=== PATIENT | female | born 1950 | race Caucasian/White ===

== ENCOUNTER → 2017-12-25 | Outpatient (CLI) | payer MEDICARE ==
--- NOTE | 2017-12-25 10:14 | BD ---
EXAMINATION TYPE: MG DEXA axial skeleton. DATE OF EXAM: 12/25/2017 CLINICAL HISTORY: Height: 62.5 inches Weight: 138 FRAX RISK QUESTIONS: Alcohol (3 or more units per day): no Family History (Parent hip fracture): no Glucocorticoids (More than 3mos): no (Ex: prednisone, prednisolone, methylprednisolone, dexamethasone, and hydrocortisone). History of Fracture in Adulthood: no Secondary Osteoporosis: 1. Type 1 Diabetes: no 2. Hyperthyroidism: no 3. Menopause before 45: no 4. Malnutrition: no 5. Chronic liver disease: no Rheumatoid Arthritis: yes Current Tobacco Use: no RISK FACTORS HISTORY OF: Family History of Osteoporosis: yes Active: yes Diet low in dairy products/other sources of calcium: no Postmenopausal woman: yes Take estrogen and/or progesterone medications: no Lost more than 2 inches in height since high school: no Frequent falls: no Poor Health: no Hyperparathyroidism: no Adrenal Insufficiency: no MEDICATIONS: Prednisone or other steroids: no Thyroid Medications: no Osteoporosis Medications: no EXAM MEASUREMENTS: Bone mineral densitometry was performed using the [employer] System. Bone mineral density as measured about the Lumbar spine is: ----- L1-L4(G/cm2): 1.463 T Score Values are as follows: ----- L2: 3.2 ----- L3: 3.0 ----- L4: 0.8 ----- L1-L4: 2.4 Bone mineral density has: Increased 7.2% since study of: 09/29/2009 Bone mineral density about the R hip (g/cm2): 0.972 Bone mineral density about the L hip (g/cm2): 1.012 T Score values are as follows: -----R Neck: -0.5 -----L Neck: -0.2 -----R Total: 0.2 -----L Total: 0.6 Bone mineral density has: Increased 0.9% since study of: 09/29/2009 IMPRESSION: Normal (Values between +1 and -1 indicate normal bone mass). Consider repeating this study in 5 year s or sooner if there is some new clinical indication. NOTE: T-SCORE=SD OF THE YOUNG ADULT MEAN.
--- NOTE | 2017-12-26 11:34 | MM ---
Reason for exam: screening (asymptomatic). Last mammogram was performed 4 years and 4 months ago. History: Patient is postmenopausal. Family history of breast cancer in aunt. Reductions of both breasts, 1990. Physical Findings: A clinical breast exam by your physician is recommended on an annual basis and results should be correlated with mammographic findings. MG 3D Screening Mammo W/Cad Bilateral CC and MLO view(s) were taken. Prior study comparison: August 22, 2013, [facility] DIGITAL RIGHT MAMMOGRAM w/CAD. August 20, 2013, bilateral digital screening mammo w/CAD. No significant changes when compared with prior studies. ASSESSMENT: Negative, BI-RAD 1 RECOMMENDATION: Routine screening mammogram of both breasts in 1 year.
== END | disposition home or self-care (01) ==
LOC: RADMAMWWP 08:43
PROVIDERS: ATTEND Internal Medicine
DX: Z12.31 Encounter for screening mammogram for malignant neoplasm of breast (principal); M85.80 Other specified disorders of bone density and structure, unspecified site
CPT/HCPCS: 77063; 77067; 77080

== ENCOUNTER → 2019-11-18 | Outpatient (CLI) | payer MEDICARE ==
[2019-11-18 11:10] LABS: Basophils # (A) 0.1 k/uL (0-0.2); Basophils % (A) 1 %; Eosinophils # (A) 0.2 k/uL (0-0.7); Eosinophils % (A) 3 %; HCT 45.9 % (34.0-46.0); Lymphocytes % (A) 18 %; MCH 26.9 pg (25.0-35.0); MCHC 30.6 g/dL (31.0-37.0); MCV 87.9 fL (80.0-100.0); Mean Platelet Volume 8.5; Monocytes # (A) 0.3 k/uL (0-1.0); Monocytes % (A) 5 %; Neutrophils # (A) 4.2 k/uL (1.3-7.7); Neutrophils % (A) 72 %; Platelet Count 183 k/uL (150-450); RBC 5.22 m/uL (3.80-5.40); RDW 12.7 % (11.5-15.5); WBC 5.8 k/uL (3.8-10.6)
[2019-11-18 13:09] LABS: Erythrocyte Sedimentation Rate 2 mm/hr (0-20)
[2019-11-18 16:30] LABS: C Reactive Protein <0.4 mg/dL (0.0-0.8); Rheumatoid Factor, Qnt 6 IU/mL (0-15); Uric Acid 3.5 mg/dL (2.9-7.7)
[2019-11-19 14:45] LABS: ANA Pattern See Footnote
== END | disposition home or self-care (01) ==
LOC: LABWHC1 10:06
PROVIDERS: ATTEND Orthopaedic Surgery
DX: M25.50 Pain in unspecified joint (principal)
CPT/HCPCS: 36415; 84550; 85025; 85652; 86038; 86039; 86140; 86431

== ENCOUNTER → 2021-07-20 | Outpatient (CLI) | payer MEDICARE ==
--- NOTE | 2021-07-20 10:52 | BD ---
EXAMINATION TYPE: Axial Bone Density DATE OF EXAM: 07/20/2021 COMPARISON: 12/25/2017 CLINICAL HISTORY: Postmenopausal screening Height: 61.5 IN Weight: 131 LBS RISK FACTORS HISTORY OF: Active: YES Postmenopausal woman: AGE 47 Lost more than 2 inches in height since high school: YES 2 10/24" MEDICATIONS: Thyroid Medications: YES Which medication: Levothyroxine How Lon MONTH Additional Medications: CALCIUM, VIT D, LEVOTHYROXINE, CHOLESTEROL MEDS, KLONOPIN, EXAM MEASUREMENTS: Bone mineral densitometry was performed using the [employer] System. Bone mineral density as measured about the Lumbar spine is: ----- L1-L4(G/cm2): 1.455 T Score Values are as follows: ----- L2: 3.4 ----- L3: 3.3 ----- L4: 0.7 ----- L1-L4: 2.3 Bone mineral density has: Decreased -0.3% since study of: 12/25/2017 Bone mineral density about the R hip (g/cm2): 0.974 Bone mineral density about the L hip (g/cm2): 1.033 T Score values are as follows: -----R Neck: -0.5 -----L Neck: 0.0 -----R Total: 0.0 -----L Total: 0.4 Bone mineral density has: Decreased -2.0% since study of: 12/25/2017 IMPRESSION: Normal (Values between +1 and -1 indicate normal bone mass). Consider repeating this study in 5 year s or sooner if there is some new clinical indication. NOTE: T-SCORE=SD OF THE YOUNG ADULT MEAN.
--- NOTE | 2021-07-21 09:44 | MM ---
Reason for exam: screening (asymptomatic). Last mammogram was performed 3 years and 7 months ago. History: Patient is postmenopausal. Family history of breast cancer in aunt. Reductions of both breasts, 1990. Physical Findings: A clinical breast exam by your physician is recommended on an annual basis and results should be correlated with mammographic findings. MG 3D Screening Mammo W/Cad Bilateral CC and MLO view(s) were taken. Prior study comparison: December 25, 2017, bilateral MG 3d screening mammo w/cad. August 22, 2013, [facility] DIGITAL RIGHT MAMMOGRAM w/CAD. There are scattered fibroglandular densities. There is no discrete abnormality. No significant changes when compared with prior studies. ASSESSMENT: Negative, BI-RAD 1 RECOMMENDATION: Routine screening mammogram of both breasts in 1 year.
== END | disposition home or self-care (01) ==
LOC: RADMAMWWP 09:26
PROVIDERS: ATTEND Internal Medicine
DX: Z12.31 Encounter for screening mammogram for malignant neoplasm of breast (principal); Z13.820 Encounter for screening for osteoporosis; Z78.0 Asymptomatic menopausal state; Z80.3 Family history of malignant neoplasm of breast
CPT/HCPCS: 77063; 77067; 77080

== ENCOUNTER → 2022-07-15 | Outpatient (CLI) | payer MEDICARE ==
[2022-07-15 16:59] LABS: African American GFR (CKD) >90 (>60 ml/min/1.73 sqM); Amylase 82 U/L (30-110); Blood Urea Nitrogen 16 mg/dL (7-17); Lipase 86 U/L (23-300); Non-African American GFR(CKD) 87 (>60 ml/min/1.73 sqM)
--- NOTE | 2022-07-15 18:37 | CT ---
EXAMINATION TYPE: CT abdomen pelvis wo/w con DATE OF EXAM: 07/15/2022 COMPARISON: Ultrasound of 03/15/2022 HISTORY: per patient no symptoms, abnormal blood work, poss issue with pancreas CT DLP: 661.70 mGycm CONTRAST: CT scan of the abdomen and pelvis is performed with Oral Contrast and without and with IV Contrast, p atient injected with 70 mL of Isovue 300. FINDINGS: LUNG BASES-: No visible nodule. No infiltrate. LIVER/GB: No calcified gallstones. Small hypoattenuating hepatic lesions could reflect cysts. Mild intrahepatic biliary ductal prominence noted. There is mild prominence of the common bile duct at the level of the pancreatic head measuring 8.2 mm. PANCREAS: There is fullness of the pancreatic head without distinct mass. As noted there is mild prom inence of the common bile duct and intrahepatic biliary tree as well as the pancreatic duct measuring up to 3.7 mm. No pancreatic inflammatory change. Pancreatic body and tail appear within normal limit s. SPLEEN: No splenic enlargement. No lesion seen. ADRENALS: No nodule. No thickening. KIDNEYS/BLADDER: No hydronephrosis. No nephrolithiasis. No distinct renal mass. Urinary bladder g rossly unremarkable. BOWEL: Normal appendix. Normal bowel caliber. No inflammation. GENITAL ORGANS: No gross abnormality. LYMPH NODES: No greater than 1cm abdominal or pelvic lymph nodes are appreciated. AORTA: No significant abnormality. OSSEOUS STRUCTURES: No significant abnormality is seen. OTHER: No significant additional abnormality is seen. IMPRESSION: 1. There is fullness of the pancreatic head without distinct mass. As noted there is mild prominence of the common bile duct and intrahepatic biliary tree as well as the pancreatic duct measuring up to 3.7 mm. Underlying neoplasm is not excluded. Further evaluation with MRI is recommended.
== END | disposition home or self-care (01) ==
LOC: RADCTMAIN 15:55
PROVIDERS: ATTEND Internal Medicine
DX: K86.89 Other specified diseases of pancreas (principal)
CPT/HCPCS: 82150; 82565; 83690; 84520; 74178; 36415; Q9967

== ENCOUNTER → 2022-08-17 | Outpatient (CLI) | payer MEDICARE ==
--- NOTE | 2022-08-18 11:31 | MR ---
EXAMINATION TYPE: MR pancreas wo/w con DATE OF EXAM: 08/17/2022 7:20 PM INDICATION: Patient age:Female; 72 years old; Reason for study: K86.9 DISEASE OF PANCREAS. Abnormal findings on CT. COMPARISON: CT abdomen pelvis 07/15/2022. TECHNIQUE: Multiplanar multi-sequence imaging was performed without contrast. Post contrast imaging was performed. IV Contrast: 6 cc Gadavist FINDINGS: LOWER CHEST: No gross irregularity. ABDOMEN Liver: Mild hepatic steatosis, scattered high T2 signal probable hepatic cyst. No suspicious abnormal enhancement. Gallbladder and Bile ducts: Unremarkable. Pancreas: Pancreatic divisum morphology to the pancreas main pancreatic duct. No evidence of ductal d ilatation. Pancreatic parenchyma enhances uniformly. Spleen: Unremarkable. Adrenal glands: Unremarkable. Kidneys: High T2 signal probable cysts are subcentimeter. No evidence hydronephrosis. Additional left peripelvic high T2 signal cyst. Stomach and Bowel: Unremarkable as visualized. Peritoneum: No evidence of pneumoperitoneum, free fluid, or adenopathy. Vasculature: No aortic aneurysm. Abdominal wall: Unremarkable. Musculoskeletal: The osseous structures appear intact. IMPRESSION: 1. No evidence of pancreatic mass. 2. Pancreatic divisum morphology. 3. Hepatic steatosis.
== END | disposition home or self-care (01) ==
LOC: RADMRIMAIN 18:03
PROVIDERS: ATTEND Family Medicine
DX: K76.0 Fatty (change of) liver, not elsewhere classified (principal); Q45.3 Other congenital malformations of pancreas and pancreatic duct
CPT/HCPCS: 74183; A9585

== ENCOUNTER → 2023-05-05 | Outpatient (CLI) | payer MEDICARE ==
--- NOTE | 2023-05-08 08:10 | MM ---
Reason for Exam: Screening (asymptomatic). Last mammogram was performed 1 year(s) and 10 month(s) ago. Patient History: Menarche at age 14. First Full-Term at age 20. Postmenopausal. 1990, Bilateral Reduction. Maternal aunt had breast cancer. Risk Values: Yohana 5 year model risk: 1.4%. NCI Lifetime model risk: 3.6%. Prior Study Comparison: 08/22/2013 Right Diagnostic Mammogram, [facility]. 12/25/2017 Bilateral Screening Mammogram, [facility]. 07/20/2021 Bilateral Screening Mammogram, [facility]. Tissue Density: There are scattered fibroglandular densities. Findings: Analyzed By CAD. There is no suspicious group of microcalcifications or new suspicious mass in either breast. Overall Assessment: Negative, BI-RAD 1 Management: Screening Mammogram of both breasts in 1 year. . Patient should continue monthly self-breast exams. A clinical breast exam by your physician is recommended on an annual basis. This exam should not preclude additional follow-up of suspicious palpable abnormalities. Note on Yohana scores and lifetime risk: 1. A Yohana score greater than 3% is considered moderate risk. If this is the case, consider specialist referral to assess eligibility for a risk reducing agent. 2. If overall lifetime risk for the development of breast cancer is 20% or higher, the patient may qualify for future screening with alternating mammogram and breast MRI. Electronically signed and approved by: Zaire Javier M.D. Radiologis
== END | disposition home or self-care (01) ==
LOC: RADMAMWWP 11:43
PROVIDERS: ATTEND Family Medicine
DX: Z12.31 Encounter for screening mammogram for malignant neoplasm of breast (principal); Z78.0 Asymptomatic menopausal state; Z80.3 Family history of malignant neoplasm of breast
CPT/HCPCS: 77067

== ENCOUNTER → 2024-07-30 | Outpatient (CLI) | payer MEDICARE ==
--- NOTE | 2024-07-31 18:46 | XR ---
EXAMINATION TYPE: XR Hip Complete LT DATE OF EXAM: 07/31/2024 10:18 AM INDICATION: Patient age:Female; 74 years old; Reason for study: M16.12 UNILATERAL PRIMARY OSTEOARTHRITIS, LEFT HIP; PHH. COMPARISON: CT abdomen pelvis 07/15/2022 TECHNIQUE: The left hip was examined in the frontal and lateral projections . FINDINGS: No evidence of any acute osseous pathology, joint dislocation, or soft tissue swelling. Mil d medial joint with acetabular sclerosis and spurring noted. IMPRESSION: 1. No acute osseous pathology. 2. Mild osteoarthritic change of the left hip. [facility], , 07/31/2024 6:43 PM
== END | disposition home or self-care (01) ==
LOC: RADXRMAIN 14:38
PROVIDERS: ATTEND Family Medicine
DX: M16.12 Unilateral primary osteoarthritis, left hip (principal)
CPT/HCPCS: 73502